=== PATIENT | male | born 1995 | race African-American/Black ===

== ENCOUNTER 2017-12-20 19:40 | Emergency (ER) | payer OTHER ==
--- NOTE | 2017-12-20 20:39 | ERPHSYRPT ---
- History of Present Illness Time Seen by Provider: 12/20/17 20:38 Historian: patient Exam Limitations: no limitations Patient Subjective Stated Complaint: pain in right flank that radiates to lower right quadrant and to the urethra Triage Nursing Assessment: Pt c/o of right sided flank pain that radiates to lower right quadrant and his urethra, started 3 days ago, rates pain 7/10, bowel sounds heard in all 4 quadrants, doesn't appear to be in any distress Physician History: The patient is a 22-year-old male complaining of pain in his right flank that radiates around to his right groin and into his right testicle for the last 3 days. It has worsened. He denies nausea, vomiting, or diarrhea. He denies fever. His past medical history is negative. He's had no abdominal surgeries. He has no history of kidney stones. He does state that it sometimes hurts when he urinates. Timing/Duration: day(s) (3), gradual onset, worse Activities at Onset: activity Quality: sharpness Abdominal Pain Onset Location: RLQ, flank (right) Pain Radiation: groin (right) Severity of Pain-Max: moderate Severity of Pain-Current: moderate Modifying Factors: Improves With: movement (worse) Associated Symptoms: denies symptoms, No diarrhea, No nausea, No vomiting Previous symptoms: no prior history Allergies/Adverse Reactions: No Known Drug Allergies Allergy (Verified 12/20/17 20:16) - Review of Systems Constitutional: No Fever, No Chills Eyes: No Symptoms Ears, Nose, & Throat: No Symptoms Respiratory: No Cough, No Dyspnea Cardiac: No Chest Pain, No Edema, No Syncope Abdominal/Gastrointestinal: Abdominal Pain, No Nausea, No Vomiting, No Diarrhea Genitourinary Symptoms: Dysuria Musculoskeletal: No Back Pain, No Neck Pain Skin: No Rash Neurological: No Dizziness, No Focal Weakness, No Sensory Changes Psychological: No Symptoms Endocrine: No Symptoms Hematologic/Lymphatic: No Symptoms Immunological/Allergic: No Symptoms All Other Systems: Reviewed and Negative - Past Medical History Pertinent Past Medical History: No - Past Surgical History Past Surgical History: No - Social History Smoking Status: Never smoker Exposure to second hand smoke: Yes Drug Use: none Patient Lives Alone: No - Nursing Vital Signs Nursing Vital Signs: Initial Vital Signs Temperature 98.5 F 12/20/17 20:07 Pulse Rate 63 12/20/17 20:07 Blood Pressure 131/43 12/20/17 20:07 O2 Sat by Pulse Oximetry 97 12/20/17 20:07 Pain Scale Pain Intensity 5 - Physical Exam General Appearance: no apparent distress, alert Eye Exam: PERRL/EOMI, eyes nml inspection Ears, Nose, Throat Exam: normal ENT inspection, pharynx normal, moist mucous membranes Neck Exam: normal inspection, non-tender, supple, full range of motion Respiratory Exam: normal breath sounds, lungs clear, No respiratory distress Cardiovascular Exam: regular rate/rhythm, normal heart sounds Gastrointestinal/Abdomen Exam: tenderness (RLQ, right flank) Rectal Exam: not done Back Exam: normal inspection, normal range of motion, No CVA tenderness, No vertebral tenderness Extremity Exam: normal inspection, normal range of motion, pelvis stable Neurologic Exam: alert, oriented x 3, cooperative, normal mood/affect, nml cerebellar function, sensation nml, No motor deficits Skin Exam: normal color, warm, dry SpO2 Interpretation: normal SpO2: 97 Oxygen Delivery: Room Air - CT Exams Abdomen/Pelvis CT Interpretation: Tele-radiologist Report (Per Dr Georges), Other (3.5 mm mid right ureter stone with mild hydronephrosis.) Ordered Tests: Active Orders 24 hr Category Date Time Status Clean Catch Urine Specimen STAT Care 12/20/17 20:44 Active IV Insertion STAT Care 12/20/17 20:44 Active Strain Urine .as ordered Care 12/20/17 23:55 Ordered ABDOMEN AND PELVIS W/0 CONTRAS [CT] Stat Exams 12/20/17 22:24 Taken CBC W DIFF Stat Lab 12/20/17 21:09 Completed CMP Stat Lab 12/20/17 21:09 Completed CULTURE,URINE Stat Lab 12/20/17 21:56 Received LIPASE Stat Lab 12/20/17 21:09 Completed Lactic Acid Stat Lab 12/20/17 21:01 Completed UA W/ MICROSCOPIC Stat Lab 12/20/17 21:56 Completed Medication Summary Discontinued Medications Generic Name Dose Route Start Last Admin Trade Name Freq PRN Reason Stop Dose Admin Sodium Chloride 1,000 mls @ 999 mls/hr 12/20/17 20:44 12/20/17 21:32 Sodium Chloride 0.9% 1000 Ml IV 12/20/17 21:44 999 mls/hr .Q1H1M STA Administration Sodium Chloride Confirm 12/20/17 21:28 Sodium Chloride 0.9% 1000 Ml Administered 12/20/17 21:29 Dose 1,000 mls @ ud .ROUTE .STK-MED ONE Sodium Chloride 1,000 mls @ 999 mls/hr 12/20/17 22:38 12/20/17 23:43 Sodium Chloride 0.9% 1000 Ml IV 12/20/17 23:38 999 mls/hr .Q1H1M STA Administration Sodium Chloride Confirm 12/20/17 23:41 Sodium Chloride 0.9% 1000 Ml Administered 12/20/17 23:42 Dose 1,000 mls @ ud .ROUTE .STK-MED ONE Ketorolac Tromethamine 30 mg 12/20/17 20:44 12/20/17 21:33 Toradol 30 Mg Injection IV 12/20/17 20:45 30 mg STAT ONE Administration Ketorolac Tromethamine Confirm 12/20/17 21:28 Toradol 30 Mg Injection Administered 12/20/17 21:29 Dose 30 mg .ROUTE .STK-MED ONE Tamsulosin HCl 0.4 mg 12/20/17 22:25 12/20/17 22:36 Flomax 0.4 Mg PO 12/20/17 22:26 0.4 mg HS STA Administration Tamsulosin HCl Confirm 12/20/17 22:35 Flomax 0.4 Mg Administered 12/20/17 22:36 Dose 0.4 mg .ROUTE .STK-MED ONE Lab/Rad Data: Laboratory Result Diagrams 12/20/17 21:09 12/20/17 21:09 Laboratory Results 12/20/17 12/20/17 12/20/17 Range/Units 21:56 21:09 21:09 WBC 6.6 (4.0-10.5) K/mm3 RBC 4.41 (4.1-5.6) M/mm3 Hgb 13.2 (12.5-18.0) gm/dl Hct 40.5 L (42-50) % MCV 91.8 (78-100) fl MCH 29.9 (26-32) pg MCHC 32.6 (32-36) g/dl RDW 12.6 (11.5-14.0) % Plt Count 276 (150-450) K/mm3 MPV 9.6 H (6-9.5) fl Gran % 43.4 (36.0-66.0) % Eos # (Auto) 0.35 (0-0.5) Absolute Lymphs (auto) 2.42 (1.0-4.6) Absolute Monos (auto) 0.95 (0.0-1.3) Lymphocytes % 36.4 (24.0-44.0) % Monocytes % 14.3 H (0.0-12.0) % Eosinophils % 5.3 H (0.00-5.0) % Basophils % 0.6 (0.0-0.4) % Absolute Granulocytes 2.88 (1.4-6.9) Basophils # 0.04 (0-0.4) Sodium 142 (137-145) mmol/L Potassium 4.0 (3.5-5.1) mmol/L Chloride 104 (98-107) mmol/L Carbon Dioxide 31 H (22-30) mmol/L Anion Gap 11.6 (5-15) MEQ/L BUN 11 (9-20) mg/dL Creatinine 1.03 (0.66-1.25) mg/dL Estimated GFR > 60.0 ML/MIN Glucose 88 (74-106) mg/dL Lactic Acid (0.4-2.0) Calcium 9.4 (8.4-10.2) mg/dL Total Bilirubin 0.50 (0.2-1.3) mg/dL AST 16 L (17-59) U/L ALT 10 (0-50) U/L Alkaline Phosphatase 66 (38-126) U/L Serum Total Protein 6.8 (6.3-8.2) g/dL Albumin 4.2 (3.5-5.0) g/dL Lipase 94 (23-300) U/L Ur Collection Type VOID Urine Color YELLOW (YELLOW) Urine Appearance HAZY (CLEAR) Urine pH 6.0 (5-6) Ur Specific [place] 1.020 (1.005-1.025) Urine Protein TRACE (Negative) Urine Ketones NEGATIVE (NEGATIVE) Urine Blood 250 (0-5) John/ul Urine Nitrite NEGATIVE (NEGATIVE) Urine Bilirubin NEGATIVE (NEGATIVE) Urine Urobilinogen NORMAL (0-1) mg/dL Ur Leukocyte Esterase NEGATIVE (NEGATIVE) Urine Microscopic RBC 50-100 (0-2) /HPF Urine Microscopic WBC 0-2 (0-5) /HPF Ur Epithelial Cells RARE (FEW) /HPF Urine Bacteria FEW (NEGATIVE) /HPF Urine Mucus SLIGHT (NEGATIVE) /HPF Urine Yeast FEW (NEGATIVE) /HPF Urine Culture Reflexed YES (NO) Urine Glucose NEGATIVE (NEGATIVE) mg/dL Specimen Received 8-17 200 12/20/17 Range/Units 21:01 WBC (4.0-10.5) K/mm3 RBC (4.1-5.6) M/mm3 Hgb (12.5-18.0) gm/dl Hct (42-50) % MCV (78-100) fl MCH (26-32) pg MCHC (32-36) g/dl RDW (11.5-14.0) % Plt Count (150-450) K/mm3 MPV (6-9.5) fl Gran % (36.0-66.0) % Eos # (Auto) (0-0.5) Absolute Lymphs (auto) (1.0-4.6) Absolute Monos (auto) (0.0-1.3) Lymphocytes % (24.0-44.0) % Monocytes % (0.0-12.0) % Eosinophils % (0.00-5.0) % Basophils % (0.0-0.4) % Absolute Granulocytes (1.4-6.9) Basophils # (0-0.4) Sodium (137-145) mmol/L Potassium (3.5-5.1) mmol/L Chloride (98-107) mmol/L Carbon Dioxide (22-30) mmol/L Anion Gap (5-15) MEQ/L BUN (9-20) mg/dL Creatinine (0.66-1.25) mg/dL Estimated GFR ML/MIN Glucose (74-106) mg/dL Lactic Acid 0.8 (0.4-2.0) Calcium (8.4-10.2) mg/dL Total Bilirubin (0.2-1.3) mg/dL AST (17-59) U/L ALT (0-50) U/L Alkaline Phosphatase (38-126) U/L Serum Total Protein (6.3-8.2) g/dL Albumin (3.5-5.0) g/dL Lipase (23-300) U/L Ur Collection Type Urine Color (YELLOW) Urine Appearance (CLEAR) Urine pH (5-6) Ur Specific [place] (1.005-1.025) Urine Protein (Negative) Urine Ketones (NEGATIVE) Urine Blood (0-5) Ojhn/ul Urine Nitrite (NEGATIVE) Urine Bilirubin (NEGATIVE) Urine Urobilinogen (0-1) mg/dL Ur Leukocyte Esterase (NEGATIVE) Urine Microscopic RBC (0-2) /HPF Urine Microscopic WBC (0-5) /HPF Ur Epithelial Cells (FEW) /HPF Urine Bacteria (NEGATIVE) /HPF Urine Mucus (NEGATIVE) /HPF Urine Yeast (NEGATIVE) /HPF Urine Culture Reflexed (NO) Urine Glucose (NEGATIVE) mg/dL Specimen Received - Progress Progress: improved Counseled pt/family regarding: diagnosis, need for follow-up, rad results - Departure Time of Disposition: 23:56 Departure Disposition: Home Clinical Impression: Ureteral stone with hydronephrosis Condition: Stable Critical Care Time: No Referrals: DOCTOR,NO FAMILY [Primary Care Provider] - Additional Instructions: You have a 3.5 mm stone in the mid right ureter. You were given Toradol 30 mg and fluids by IV and Flomax 0.4 mg orally in the ER. Stay well hydrated. Strain your urine to collect the stone. Once the stone has been collected, please take it to your primary medical doctor for further evaluation. You may take [place] one tablet every 4-6 hours as needed. Prescriptions: Hydrocodone/APAP 5/325 [[place] 5/325 mg] 1 each PO Q4-6HPRN PRN #10 tablet MDD 6 PRN Reason: Pain
[2017-12-20] MEDS ORDERED: TORAdol 30 mg Injection IV ONE (20:44)
[2017-12-20] MEDS ORDERED: Sodium Chloride 0.9% 1000 ML 1,000 ML IV STA ×2 (20:44→22:38)
[2017-12-20 21:12] LABS: BASOPHIL % 0.6 % (0.0-0.4); Basophil (Absolute #) 0.04 (0-0.4); Eosinophil % 5.3 % (0.00-5.0); Eosinophil (Absolute #) 0.35 (0-0.5); Granulocyte Absolute (ANC) 2.88 (1.4-6.9); Granulocytes % 43.4 % (36.0-66.0); Hematocrit 40.5 % (42-50); Hemoglobin 13.2 gm/dl (12.5-18.0); Lymphocyte (Absolute #) 2.42 (1.0-4.6); Lymphocytes % 36.4 % (24.0-44.0); Mean Cell Volume 91.8 fl (78-100); Mean Corpuscular Hemoglobin 29.9 pg (26-32); Mean Corpuscular Hgb Concent. 32.6 g/dl (32-36); Mean Platelet Volume 9.6 fl (6-9.5); Monocyte (Absolute #) 0.95 (0.0-1.3); Monocytes % 14.3 % (0.0-12.0); Platelet Count 276 K/mm3 (150-450); Red Blood Count 4.41 M/mm3 (4.1-5.6); Red Cell Distribution Width 12.6 % (11.5-14.0); White Blood Count 6.6 K/mm3 (4.0-10.5)
[2017-12-20] MEDS ORDERED: Sodium Chloride 0.9% 1000 ML 1,000 ML ONE ×2 (21:28→23:41)
[2017-12-20] MEDS ORDERED: TORAdol 30 mg Injection ONE (21:28)
[2017-12-20 21:32] LABS: ALBUMIN 4.2 g/dL (3.5-5.0); ALKALINE PHOSPHATASE 66 U/L (38-126); ANION GAP 11.6 MEQ/L (5-15); BLOOD UREA NITROGEN 11 mg/dL (9-20); CHLORIDE 104 mmol/L (98-107); Calcium 9.4 mg/dL (8.4-10.2); Carbon Dioxide 31 mmol/L (22-30); Creatinine 1 1.03 mg/dL (0.66-1.25); Glucose 88 mg/dL (74-106); LIPASE 94 U/L (23-300); SGOT/AST 16 U/L (17-59); SGPT/ALT 10 U/L (0-50); SODIUM 142 mmol/L (137-145); Total Protein 6.8 g/dL (6.3-8.2)
[2017-12-20 22:10] LABS: Appearance HAZY (CLEAR); Bilirubin NEGATIVE (NEGATIVE); Blood 250 Ery/ul (0-5); Glucose NEGATIVE (NEGATIVE); Ketones NEGATIVE (NEGATIVE); Leukocyte Esterase NEGATIVE (NEGATIVE); Mucus SLIGHT /HPF (NEGATIVE); Nitrite NEGATIVE (NEGATIVE); Protein,Urine Dip TRACE (Negative); Urobilinogen NORMAL mg/dL (0-1)
[2017-12-20 22:11] LABS: Bacteria FEW /HPF (NEGATIVE); Epithelial Cells RARE /HPF (FEW); RBC 50-100 /HPF (0-2); WBC 0-2 /HPF (0-5)
[2017-12-20] MEDS ORDERED: Flomax 0.4 MG PO STA (22:25)
[2017-12-20] MEDS ORDERED: Flomax 0.4 MG ONE (22:35)
[2017-12-20 23:47] VITALS: O2SAT 97
[2017-12-20 23:52] VITALS: BP 115/52; PULSE 68
[2017-12-20] MEDS ORDERED: NORCO 5/325 MG PO ONE (23:57)
[2017-12-21] MEDS ORDERED: NORCO 5/325 MG ONE (00:05)
--- NOTE | 2017-12-21 08:38 | XRAY ---
Indication: Right flank pain. Hematuria. Multiple contiguous axial images obtained through the abdomen and pelvis without contrast as ordered. Comparison: None Lung bases are clear. Heart is not enlarged. Noncontrasted stomach and bowel loops appear nonobstructed. Normal appendix. No free fluid/air. There is 3 mm right mid ureteral calculus, approximately L3 level. Proximal right ureter slightly prominent along with mild hydronephrosis consistent with partial obstructive uropathy. Remaining liver, gallbladder, pancreas, spleen, adrenal glands, kidneys, ureters, bladder, and aorta appear unremarkable for noncontrast exam. Osseous structures intact. Impression: 1. 3 mm right mid ureteral calculus producing partial obstruction. 2. Remaining CT abdomen/pelvis without contrast exam is negative. Comment: Preliminary interpretation was made by C. No discrepancy. CTDI 14.80
== END 2017-12-21 00:22 | disposition home or self-care (01) ==
LOC: ED 19:40
DX: N13.2 Hydronephrosis with renal and ureteral calculous obstruction (principal)
CPT/HCPCS: 36000; 36415; 74176; 80053; 81000; 83605; 83690; 85025; 87077; 87086; 87186; 96360; 96361; 96374; 96376; 99284; J1885; A9270-GY

== ENCOUNTER 2018-03-05 16:35 | Emergency (ER) | payer MEDICAID, OTHER ==
[2018-03-05] MEDS ORDERED: Sodium Chloride 0.9% 1000 ML 1,000 ML IV STA (17:10)
[2018-03-05] MEDS ORDERED: TORAdol 30 mg Injection IV ONE (17:10)
[2018-03-05] MEDS ORDERED: Sodium Chloride 0.9% 1000 ML 1,000 ML ONE (17:39)
[2018-03-05] MEDS ORDERED: TORAdol 30 mg Injection ONE (17:39)
[2018-03-05 18:31] LABS: BASOPHIL % 0.9 % (0.0-0.4); Basophil (Absolute #) 0.05 (0-0.4); Eosinophil % 5.8 % (0.00-5.0); Eosinophil (Absolute #) 0.34 (0-0.5); Granulocyte Absolute (ANC) 2.25 (1.4-6.9); Granulocytes % 38.3 % (36.0-66.0); Hematocrit 37.9 % (42-50); Hemoglobin 12.3 gm/dl (12.5-18.0); Lymphocyte (Absolute #) 2.47 (1.0-4.6); Lymphocytes % 42.1 % (24.0-44.0); Mean Cell Volume 91.5 fl (78-100); Mean Corpuscular Hemoglobin 29.7 pg (26-32); Mean Corpuscular Hgb Concent. 32.5 g/dl (32-36); Mean Platelet Volume 10.4 fl (6-9.5); Monocyte (Absolute #) 0.76 (0.0-1.3); Monocytes % 12.9 % (0.0-12.0); Platelet Count 276 K/mm3 (150-450); Red Blood Count 4.14 M/mm3 (4.1-5.6); Red Cell Distribution Width 13.6 % (11.5-14.0); White Blood Count 5.9 K/mm3 (4.0-10.5)
[2018-03-05 18:40] LABS: Appearance SLIGHTLY CLOUDY (CLEAR); Bilirubin NEGATIVE (NEGATIVE); Blood NEGATIVE Ery/ul (0-5); Glucose NEGATIVE (NEGATIVE); Ketones TRACE (NEGATIVE); Leukocyte Esterase NEGATIVE (NEGATIVE); Nitrite NEGATIVE (NEGATIVE); Protein,Urine Dip 30 (Negative); Urobilinogen 2 mg/dL (0-1)
--- NOTE | 2018-03-05 18:50 | ERPHSYRPT ---
- History of Present Illness Source: patient Exam Limitations: no limitations Patient Subjective Stated Complaint: Pt states "I think I have a kidney stone again. My right side hurts." Triage Nursing Assessment: Pt alert and oriented X 3, skin pwd. PT ambulates with an upright steady gait, able to speak in clear full sentences. PT sitting calmly no apparent respiratory distress. Timing/Duration: today Quality: sharp, aching Severity of Pain-Max: moderate Severity of Pain-Current: moderate Modifying Factors: Improves With: pain medication Associated Symptoms: denies symptoms, other (CVA pain on the right and dysuria) Previous symptoms: same symptoms as today (with h/o nephrolithiasis) Hx Tetanus, Diphtheria Vaccination/Date Given: Yes Hx Influenza Vaccination/Date Given: No Hx Pneumococcal Vaccination/Date Given: No Immunizations Up to Date: Yes <PADMINI LUNSFORD - Last Filed: 03/05/18 19:12> - History of Present Illness Method of Injury: other (no injury) <DIMITRI BECERRA - Last Filed: 03/05/18 20:16> - History of Present Illness Time Seen by Provider: 03/05/18 17:00 Physician History: 22-year-old white male who states he has a history of kidney stones arrives with complaint of pain in the right flank symptoms going on for 2-3 days pain is described as sharp severe he states he's had dysuria Past medical history is negative other than kidney stones Past surgical history is negative. Social history patient denies tobacco alcohol or illicit drug use (DIMITRI BECERRA) Allergies/Adverse Reactions: No Known Drug Allergies Allergy (Verified 12/20/17 20:16) - Review of Systems Constitutional: No Fever, No Chills Eyes: No Symptoms Ears, Nose, & Throat: No Symptoms Respiratory: No Cough, No Dyspnea Cardiac: No Chest Pain, No Edema, No Syncope Abdominal/Gastrointestinal: No Abdominal Pain, No Nausea, No Vomiting, No Diarrhea Genitourinary Symptoms: Dysuria, Flank Pain (on the right) Musculoskeletal: No Back Pain, No Neck Pain Skin: No Rash Neurological: No Dizziness, No Focal Weakness, No Sensory Changes Psychological: No Symptoms Endocrine: No Symptoms All Other Systems: Reviewed and Negative <PADMINI LUNSFORD - Last Filed: 03/05/18 19:12> - Past Medical History Pertinent Past Medical History: No - Past Surgical History Past Surgical History: No - Social History Smoking Status: Never smoker Exposure to second hand smoke: Yes Drug Use: none Patient Lives Alone: No <PADMINI LUNSFORD - Last Filed: 03/05/18 19:12> - Physical Exam General Appearance: moderate distress Eye Exam: PERRL/EOMI, eyes nml inspection Neck Exam: normal inspection, non-tender, supple, full range of motion, No meningismus, No midline tenderness Respiratory Exam: normal breath sounds, lungs clear, No respiratory distress Cardiovascular Exam: regular rate/rhythm, normal heart sounds Gastrointestinal Exam: soft, No tenderness, No mass Male Gen[place]ia Exam: other (Tenderness to palpation of the R CVA) Back Exam: normal inspection Extremity Exam: normal inspection, normal range of motion, No calf tenderness, No pedal edema Neurologic Exam: alert, oriented x 3, cooperative, finance director II-XII nml as tested, normal mood/affect, nml station & gait, sensation nml, No motor deficits Skin Exam: normal color, warm, dry, No rash SpO2: 97 Oxygen Delivery: Room Air <PADMINI LUNSFORD - Last Filed: 03/05/18 19:12> - Nursing Vital Signs Nursing Vital Signs: Initial Vital Signs Temperature 98.2 F 03/05/18 16:45 Pulse Rate 72 03/05/18 16:45 Respiratory Rate 16 03/05/18 16:45 Blood Pressure 113/57 03/05/18 16:45 O2 Sat by Pulse Oximetry 100 03/05/18 16:45 Pain Scale Pain Intensity 4 - Course Nursing assessment & vital signs reviewed: Yes - CT Exams Abdomen/Pelvis CT Interpretation: Discussed w/radiologist (CT abdomen and pelvis: Compared to December 20, 2017. No stone or evidence for obstuctive uropathy, normal appendix. Mild diffuse fecal stasis without obstruction.) <DIMITRI BECERRA - Last Filed: 03/05/18 20:16> Ordered Tests: Active Orders 24 hr Category Date Time Status IV Insertion STAT Care 03/05/18 17:10 Active ABDOMEN AND PELVIS W/0 CONTRAS [CT] Stat Exams 03/05/18 17:08 Taken CBC W DIFF Stat Lab 03/05/18 18:00 Completed CMP Stat Lab 03/05/18 18:00 Completed CULTURE,URINE Stat Lab 03/05/18 18:00 Received UA W/RFX UR CULTURE Stat Lab 03/05/18 18:00 Completed Medication Summary Discontinued Medications Generic Name Dose Route Start Last Admin Trade Name Obi PRN Reason Stop Dose Admin Sodium Chloride 1,000 mls @ 999 mls/hr 03/05/18 17:10 03/05/18 17:48 Sodium Chloride 0.9% 1000 Ml IV 03/05/18 18:10 999 mls/hr .Q1H1M STA Administration Sodium Chloride Confirm 03/05/18 17:39 Sodium Chloride 0.9% 1000 Ml Administered 03/05/18 17:40 Dose 1,000 mls @ ud .ROUTE .STK-MED ONE Ketorolac Tromethamine 30 mg 03/05/18 17:10 03/05/18 17:49 Toradol 30 Mg Injection IV 03/05/18 17:11 30 mg STAT ONE Administration Ketorolac Tromethamine Confirm 03/05/18 17:39 Toradol 30 Mg Injection Administered 03/05/18 17:40 Dose 30 mg .ROUTE .STK-MED ONE Lab/Rad Data: Laboratory Result Diagrams 03/05/18 18:00 03/05/18 18:00 Laboratory Results 03/05/18 03/05/18 03/05/18 Range/Units 18:00 18:00 18:00 WBC 5.9 (4.0-10.5) K/mm3 RBC 4.14 (4.1-5.6) M/mm3 Hgb 12.3 L (12.5-18.0) gm/dl Hct 37.9 L (42-50) % MCV 91.5 (78-100) fl MCH 29.7 (26-32) pg MCHC 32.5 (32-36) g/dl RDW 13.6 (11.5-14.0) % Plt Count 276 (150-450) K/mm3 MPV 10.4 H (6-9.5) fl Gran % 38.3 (36.0-66.0) % Eos # (Auto) 0.34 (0-0.5) Absolute Lymphs (auto) 2.47 (1.0-4.6) Absolute Monos (auto) 0.76 (0.0-1.3) Lymphocytes % 42.1 (24.0-44.0) % Monocytes % 12.9 H (0.0-12.0) % Eosinophils % 5.8 H (0.00-5.0) % Basophils % 0.9 (0.0-0.4) % Absolute Granulocytes 2.25 (1.4-6.9) Basophils # 0.05 (0-0.4) Sodium 141 (137-145) mmol/L Potassium 3.9 (3.5-5.1) mmol/L Chloride 103 (98-107) mmol/L Carbon Dioxide 31 H (22-30) mmol/L Anion Gap 11.2 (5-15) MEQ/L BUN 10 (9-20) mg/dL Creatinine 1.05 (0.66-1.25) mg/dL Estimated GFR > 60.0 ML/MIN Glucose 83 (74-106) mg/dL Calcium 9.6 (8.4-10.2) mg/dL Total Bilirubin 0.50 (0.2-1.3) mg/dL AST 19 (17-59) U/L ALT 12 (0-50) U/L Alkaline Phosphatase 72 (38-126) U/L Serum Total Protein 6.9 (6.3-8.2) g/dL Albumin 4.3 (3.5-5.0) g/dL Urine Color YELLOW (YELLOW) Urine Appearance SLIGHTLY CLOUDY (CLEAR) Urine pH 6.0 (5-6) Ur Specific [place] 1.030 (1.005-1.025) Urine Protein 30 (Negative) Urine Ketones TRACE (NEGATIVE) Urine Blood NEGATIVE (0-5) John/ul Urine Nitrite NEGATIVE (NEGATIVE) Urine Bilirubin NEGATIVE (NEGATIVE) Urine Urobilinogen 2 (0-1) mg/dL Ur Leukocyte Esterase NEGATIVE (NEGATIVE) Urine WBC (Auto) 0-2 (0-5) /HPF Urine RBC (Auto) 0-2 (0-2) /HPF U Epithel Cells (Auto) RARE (FEW) /HPF Urine Bacteria (Auto) RARE (NEGATIVE) /HPF Urine Mucus (Auto) MODERATE (NEGATIVE) /HPF Urine Culture Reflexed YES (NO) Urine Glucose NEGATIVE (NEGATIVE) mg/dL <PADMINI LUNSFORD - Last Filed: 03/05/18 19:12> - Progress Progress: improved <DIMITRI BECERRA - Last Filed: 10/31/18 20:16> - Progress Progress Note: 03/05/18 19:12 Pt was signed out to Dr Becerra (PADMINI LUNSFORD) 03/05/18 19:46 This is a 22-year-old male with history of kidney stones initially seen by Dr. Lunsford patient complaining of pain in the right flank symptoms for 2-3 days He states he's had dysuria. No nausea no vomiting. Patient states the pain in his right flank as sharp feels like kidney stone he had before. Past medical history kidney stones. Past surgical history negative. Social history denies tobacco alcohol or illicit drug use. Physical examination HEENT within normal limits. Neck is supple. Lungs are clear. Heart regular rate rhythm without murmur. Abdomen soft nontender nondistended positive bowel sounds. Back right flank tenderness. Extremities full range of motion pulse equal symmetrical 2 over 4. Neuro cranial nerves II through XII are intact DTRs symmetrical 2 over [address] 15[address] of the abdomen and pelvis read by radiologist: No stone or evidence for obstructive uropathy, normal appendix. Mild diffuse fecal stasis without obstruction. Patient has received IV normal saline IV Toradol prescribed by Dr. Lunsford patient improved but still with some pain. Will go ahead and plan to discharge patient clear fluids plenty of fluids 24-48 hours. Carpenter for pain. Advil for pain. Patient will be given a list of family physicians for follow-up (DIMITRI BECERRA) <PADMINI LUNSFORD - Last Filed: 03/05/18 19:12> - Departure Time of Disposition: 19:49 Departure Disposition: Home Critical Care Time: No <DIMITRI BECERRA - Last Filed: 03/05/18 20:16> - Departure Clinical Impression: Right flank pain, Renal colic Condition: Fair Referrals: DOCTOR,NO FAMILY [Primary Care Provider] - Instructions: Flank Pain Additional Instructions: Return home. Plenty of fluids clear fluids only 24-48 hours if any abdominal pain nausea or vomiting. Carpenter 5/325 #12 one orally every 4-6 hours as needed for pain. Advil [id number] 2-3 tablets every 6 hours as needed for pain. Follow-up with your family doctor(list) if symptoms are worse, no better in 48 hours, or persist longer than one week. Return for acute distress or for severe symptoms. Prescriptions: Hydrocodone/Acetaminophen [C[place] 5-325 Tablet] 1 tab PO Q4-6HPRN PRN #12 tablet MDD 6 tablets PRN Reason: Pain
[2018-03-05 18:52] LABS: ALBUMIN 4.3 g/dL (3.5-5.0); ALKALINE PHOSPHATASE 72 U/L (38-126); ANION GAP 11.2 MEQ/L (5-15); BLOOD UREA NITROGEN 10 mg/dL (9-20); CHLORIDE 103 mmol/L (98-107); Calcium 9.6 mg/dL (8.4-10.2); Carbon Dioxide 31 mmol/L (22-30); Creatinine 1 1.05 mg/dL (0.66-1.25); Glucose 83 mg/dL (74-106); Potassium 3.9 mmol/L (3.5-5.1); SGOT/AST 19 U/L (17-59); SGPT/ALT 12 U/L (0-50); SODIUM 141 mmol/L (137-145); Total Protein 6.9 g/dL (6.3-8.2)
[2018-03-05 20:06] VITALS: BP 112/54; PULSE 70; O2SAT 98
--- NOTE | 2018-03-06 08:34 | XRAY ---
Indication: Right lower abdomen pain. History stones. Multiple contiguous axial images obtained through the abdomen and pelvis without contrast as ordered. Comparison: December 20, 2017. Lung bases remain clear. Heart is not enlarged. Stomach is distended with food/fluid. Noncontrasted stomach and bowel loops appear nonobstructed. Normal appendix. There is now mild diffuse scattered colonic fecal debris throughout. No free fluid/air. Gallbladder contracted without gallstones. Remaining liver, gallbladder, pancreas, spleen, adrenal glands, kidneys, ureters, wider, and aorta appear unremarkable for noncontrast exam. Osseous structures intact. No ventral or inguinal hernias. Impression: 1. Mild fecal stasis without obstruction. 2. Remaining CT abdomen/pelvis without contrast exam is negative. CT DI 15.31
== END 2018-03-05 20:07 | disposition home or self-care (01) ==
LOC: ED 16:35
DX: R10.9 Unspecified abdominal pain (principal); N23 Unspecified renal colic; Z87.442 Personal history of urinary calculi
CPT/HCPCS: 36415; 74176; 80053; 81001; 85025; 87086; 96374; 99284; J1885

== ENCOUNTER 2018-05-21 12:08 | Emergency (ER) | payer MEDICAID ==
[2018-05-21 12:23] VITALS: BP 131/69; PULSE 77; O2SAT 97
[2018-05-21] MEDS ORDERED: TYLENOL 325 MG PO ONE (12:45)
[2018-05-21] MEDS ORDERED: TYLENOL 325 MG ONE (12:48)
--- NOTE | 2018-05-21 12:49 | ERPHSYRPT ---
- History of Present Illness Time Seen by Provider: 05/21/18 12:41 Source: patient Exam Limitations: no limitations Patient Subjective Stated Complaint: SORE THROAT, RIGHT EAR SORENESS FOR 4-5 DAYS. DENIES CONGESTION OR COUGH. Triage Nursing Assessment: ALERT AND ORIENTED, CALM. Physician History: 23-year-old white male arrives with complaint of right sided earache and sore throat symptoms for a week states this has been intermittent. States he's had some time a headache no nausea no vomiting no other complaints. Past medical history is negative. Past surgical history is negative. Social history patient denies tobacco alcohol or illicit drug use. Timing/Duration: week(s) (1 week) Severity: moderate Modifying Factors: Improves With: acetaminophen (patient took Tylenol yesterday) Associated Symptoms: headaches, No nausea, No vomiting, No abdominal pain, No shortness of breath, No heartburn, No diaphoresis, No cough, No chills, No chest pain, No fever, No loss of appetite, No malaise, No rash, No syncope, No seizure, No weakness Allergies/Adverse Reactions: No Known Drug Allergies Allergy (Verified 12/20/17 20:16) Hx Tetanus, Diphtheria Vaccination/Date Given: Yes Hx Influenza Vaccination/Date Given: No Hx Pneumococcal Vaccination/Date Given: No Immunizations Up to Date: No - Review of Systems Constitutional: No Fever, No Chills Eyes: No Symptoms Ears, Nose, & Throat: Ear Pain (right ear pain), Throat Pain, No Ear Discharge, No Hearing Changes, No Tinnitus, No Nose Pain, No Nose Congestion, No Nose Discharge, No Sinus Drainage, No Epistaxis, No Mouth Pain, No Mouth Swelling, No Loose Teeth, No Throat Swelling, No Hoarse, No Painful Swallowing, No Snoring , No Stridor Respiratory: No Cough, No Dyspnea Cardiac: No Chest Pain, No Edema, No Syncope Abdominal/Gastrointestinal: No Abdominal Pain, No Nausea, No Vomiting, No Diarrhea Genitourinary Symptoms: No Symptoms Musculoskeletal: No Back Pain, No Neck Pain Skin: No Rash Neurological: Headache, No Dizziness, No Focal Weakness, No Gait Changes, No Irritability, No Lethargy, No Paralysis, No Parasthesia, No Seizure, No Sensory Changes, No Speech Changes, No Tics, No Tremors, No Vertigo Psychological: No Symptoms Endocrine: No Symptoms All Other Systems: Reviewed and Negative - Past Medical History Pertinent Past Medical History: No Other Medical History: DENIES ANY MEDICAL HISTORY - Past Surgical History Past Surgical History: No - Social History Smoking Status: Never smoker Exposure to second hand smoke: No Drug Use: none Patient Lives Alone: No - Nursing Vital Signs Nursing Vital Signs: Initial Vital Signs Temperature 98.5 F 05/21/18 12:08 Pulse Rate 77 05/21/18 12:08 Respiratory Rate 18 05/21/18 12:08 Blood Pressure 131/69 05/21/18 12:08 O2 Sat by Pulse Oximetry 97 05/21/18 12:08 Pain Scale Pain Intensity 4 - Physical Exam General Appearance: no apparent distress, alert Eye Exam: PERRL/EOMI, eyes nml inspection Ears, Nose, Throat Exam: normal ENT inspection, TMs normal, pharynx normal, moist mucous membranes, pharyngeal erythema, other (small amount of white fluid behind right tm) Neck Exam: normal inspection, non-tender, supple, full range of motion, other ( right anterior cervical lymph nodes tender with palpation not enlarged) Respiratory Exam: normal breath sounds, lungs clear, No respiratory distress Cardiovascular Exam: regular rate/rhythm, normal heart sounds, normal peripheral pulses Gastrointestinal/Abdomen Exam: soft, normal bowel sounds, No tenderness, No mass Back Exam: normal inspection, normal range of motion, No CVA tenderness, No vertebral tenderness Extremity Exam: normal inspection, normal range of motion, pelvis stable Neurologic Exam: alert, oriented x 3, cooperative, 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, normal mood/affect, nml cerebellar function, nml station & gait, sensation nml, No motor deficits Skin Exam: normal color, warm, dry, No rash Lymphatic Exam: No adenopathy SpO2 Interpretation: normal (97%) SpO2: 97 Oxygen Delivery: Room Air Ordered Tests: Medication Summary Discontinued Medications Generic Name Dose Route Start Last Admin Trade Name Freq PRN Reason Stop Dose Admin Acetaminophen 650 mg 05/21/18 12:45 05/21/18 12:49 Tylenol 325 Mg PO 05/21/18 12:46 650 mg STAT ONE Administration Acetaminophen Confirm 05/21/18 12:48 Tylenol 325 Mg Administered 05/21/18 12:49 Dose 650 mg .ROUTE .[facility] ONE Lab/Rad Data: Laboratory Results 05/21/18 Range/Units 12:50 Group A Strep Antibody NEGATIVE (NEGATIVE) - Progress Progress: improved Progress Note: 05/21/18 14:30 Patient's strep is negative. Will discharge patient viral pharyngitis and right ear pain. Patient will take Tylenol and Advil as needed for pain. - Departure Time of Disposition: 14:31 Departure Disposition: Home Clinical Impression: Right ear pain, Viral pharyngitis Condition: Fair Critical Care Time: No Referrals: DOCTOR,NO FAMILY [Primary Care Provider] - Instructions: Viral Pharyngitis (DC) Additional Instructions: Return home. Plenty of fluid clears. Tylenol every 4 hours or Motrin every 6 hours as needed for pain. Follow-up with your family symptoms are worse, no better in 48-72 hours or persist longer than one week. Return for acute distress or for severe symptoms.
== END 2018-05-21 14:42 | disposition home or self-care (01) ==
LOC: ED 12:08
DX: H92.01 Otalgia, right ear (principal); J02.9 Acute pharyngitis, unspecified
CPT/HCPCS: 87651; 99283; A9270-GY

== ENCOUNTER 2018-06-24 18:11 | Emergency (ER) | payer MEDICAID ==
--- NOTE | 2018-06-24 19:58 | ERPHSYRPT ---
- History of Present Illness Time Seen by Provider: 06/24/18 19:49 Source: patient Exam Limitations: no limitations Patient Subjective Stated Complaint: Pt states "I have body aches, chills, cough for about a week now." Triage Nursing Assessment: PT alert and oriented X 3, skin pwd Pt ambulates with an upright steady gait, able to speak in clear full sentences. Pt texting on the phone, no apparent respiratory distress noted. Physician History: 23-year-old white male arrives with complaint of one week of the chest congestion and cough states cough is worse when he wakes up in the morning. Denies any other complaints. Past medical history is negative. Past surgical history is negative. Social history patient denies tobacco alcohol or illicit drug use. Timing/Duration: week(s) (1 WEEK) Severity: mild Modifying Factors: Improves With: nothing Associated Symptoms: cough, malaise, No nausea, No vomiting, No abdominal pain, No shortness of breath, No heartburn, No diaphoresis, No chills, No chest pain, No fever, No headaches, No loss of appetite, No rash, No syncope, No seizure, No weakness Allergies/Adverse Reactions: No Known Drug Allergies Allergy (Verified 12/20/17 20:16) Home Medications: No Reportable Medications [No Reported Medications] 06/24/18 [History] Hx Tetanus, Diphtheria Vaccination/Date Given: Yes Hx Influenza Vaccination/Date Given: No Hx Pneumococcal Vaccination/Date Given: No Immunizations Up to Date: Yes - Review of Systems Constitutional: No Fever, No Chills Eyes: No Symptoms Ears, Nose, & Throat: No Symptoms Respiratory: Cough, No Dyspnea Cardiac: No Chest Pain, No Edema, No Syncope Abdominal/Gastrointestinal: No Abdominal Pain, No Nausea, No Vomiting, No Diarrhea Genitourinary Symptoms: No Dysuria Musculoskeletal: Myalgias Skin: No Rash Neurological: No Dizziness, No Focal Weakness, No Sensory Changes Psychological: No Symptoms Endocrine: No Symptoms All Other Systems: Reviewed and Negative - Past Medical History Pertinent Past Medical History: No Other Medical History: DENIES ANY MEDICAL HISTORY - Past Surgical History Past Surgical History: No - Social History Smoking Status: Never smoker Exposure to second hand smoke: Yes Drug Use: none Patient Lives Alone: No - Nursing Vital Signs Nursing Vital Signs: Initial Vital Signs Temperature 98.0 F 06/24/18 18:29 Pulse Rate 70 06/24/18 18:29 Respiratory Rate 18 06/24/18 18:29 Blood Pressure 129/65 06/24/18 18:29 O2 Sat by Pulse Oximetry 98 06/24/18 18:29 Pain Scale Pain Intensity 4 - Physical Exam General Appearance: no apparent distress, alert Eye Exam: PERRL/EOMI, eyes nml inspection Ears, Nose, Throat Exam: normal ENT inspection, TMs normal, pharynx normal, moist mucous membranes Neck Exam: normal inspection, non-tender, supple, full range of motion Respiratory Exam: normal breath sounds, lungs clear, No respiratory distress Cardiovascular Exam: regular rate/rhythm, normal heart sounds, normal peripheral pulses, capillary refill <2 sec Gastrointestinal/Abdomen Exam: soft, normal bowel sounds, No tenderness, No mass Back Exam: normal inspection, normal range of motion, No CVA tenderness, No vertebral tenderness Extremity Exam: normal inspection, normal range of motion, pelvis stable Neurologic Exam: alert, oriented x 3, cooperative, 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 He states is worse when he lays down and gets up in the morning. Feels like he's had some mucus in the back of his throat. On physical examination patient with clear lungs throat is clear, heart is regular Examination essentially normal patient in no acute distress. Vitals are normal. I've offered the patient a chest x-ray he really doesn't want one. Will go ahead and discharge patient. Diagnoses URI, viral syndrome. Patient to use [id number] cough medications Tylenol plenty of fluids 06/24/18 19:57 patient states he does not smoke. - Departure Time of Disposition: 19:56 Departure Disposition: Home Clinical Impression: URI (upper respiratory infection) Qualifiers: URI type: unspecified viral URI Qualified Code(s): J06.9 - Acute upper respiratory infection, unspecified Condition: Fair Critical Care Time: No Referrals: DOCTOR,NO FAMILY [Primary Care Provider] - Instructions: Cough, Adult (DC) Additional Instructions: Return home. Plenty of fluids. [id number] cough remedies as needed. Tylenol every 4 hours as needed for pain or temperature greater than 100.6. Follow-up with your family doctor if symptoms worse no better in 48 hours, or persist longer than one week. Return for acute distress or for severe symptoms.
[2018-06-24 20:09] VITALS: BP 112/62; PULSE 74; O2SAT 100
== END 2018-06-24 20:09 | disposition home or self-care (01) ==
LOC: ED 18:11
DX: J06.9 Acute upper respiratory infection, unspecified (principal); B34.9 Viral infection, unspecified
CPT/HCPCS: 99283